=== PATIENT | female | born 1965 | race Caucasian/White ===

== ENCOUNTER 2017-11-20 07:25 | Observation (INO) | payer BC ==
[2017-11-20] MEDS ORDERED: RX INFO: IV CONTRAST WAS GIVEN 1 EACH MISC MISCELLANE PRN (07:50)
[2017-11-20] MEDS ORDERED: PANTOPRAZOLE 40 MG/10 ML VIAL IVP STA (07:50)
--- NOTE | 2017-11-20 07:53 | ED ---
General Adult HPI - General Chief complaint: Abdominal Pain Stated complaint: Abd Pain Time Seen by Provider: 11/20/17 07:43 Source: patient, RN notes reviewed Mode of arrival: ambulatory Limitations: no limitations - History of Present Illness Initial comments: Patient is a pleasant 52-year-old female presenting to the emergency Department with complaints of abdominal discomfort. Onset was around 8 PM last night. Patient has discomfort left lower abdomen. Patient has had several episodes of bloody bowel movements with only blood, no stool. Patient has been somewhat constipated the past couple of days prior to this. No diarrhea. Patient has mild nausea, no vomiting. Patient had chills and subjective fever last night. - Related Data Allergies Allergy/AdvReac Type Severity Reaction Status Date / Time No Known Allergies Allergy Verified 11/20/17 07:29 Review of Systems ROS Statement: Those systems with pertinent positive or pertinent negative responses have been documented in the HPI. ROS Other: All systems not noted in ROS Statement are negative. Constitutional: Reports: fever, chills Eyes: Denies: eye pain ENT: Denies: ear pain Respiratory: Denies: cough Cardiovascular: Denies: chest pain Gastrointestinal: Reports: abdominal pain, nausea. Denies: vomiting Genitourinary: Denies: dysuria Musculoskeletal: Denies: back pain Skin: Denies: rash Neurological: Denies: weakness 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 History of Any Multi-Drug Resistant Organisms: None Reported Past Surgical History: Hysterectomy, Orthopedic Surgery Past Psychological History: No Psychological Hx Reported Smoking Status: Never smoker Past Alcohol Use History: None Reported Past Drug Use History: None Reported General Exam Limitations: no limitations General appearance: alert, in no apparent distress Head exam: Present: atraumatic Eye exam: Present: normal appearance, PERRL ENT exam: Present: normal oropharynx Neck exam: Present: normal inspection Respiratory exam: Present: normal lung sounds bilaterally Cardiovascular Exam: Present: regular rate, normal rhythm Expanded Peripheral pulses: 2+: Posterior Tibialis (R), Posterior Tibialis (L) GI/Abdominal exam: Present: soft, tenderness (Mild to moderate tenderness left lower abdomen), normal bowel sounds. Absent: distended, guarding, rebound, rigid, pulsatile mass Extremities exam: Present: normal inspection. Absent: pedal edema, calf tenderness Back exam: Present: normal inspection. Absent: CVA tenderness (L) Neurological exam: Present: alert Psychiatric exam: Present: normal affect, normal mood Skin exam: Present: normal color Course Vital Signs 11/20/17 11/20/17 07:27 08:29 Temperature 100.2 F H Pulse Rate 86 73 Respiratory 20 18 Rate Blood Pressure 161/97 139/74 O2 Sat by Pulse 98 98 Oximetry Medical Decision Making - Medical Decision Making Patient reevaluated and updated. Dr. Herrera has been paged for admission for Dr. Hayden. Patient does not meet sepsis criteria. Patient will be covered with antibiotics secondary to elevated temperature and colitis on CT. - Lab Data Result diagrams: 11/20/17 07:40 11/20/17 07:40 Lab Results 11/20/17 11/20/17 11/20/17 Range/Units 07:40 07:40 07:40 WBC 10.5 (3.8-10.6) k/uL RBC 4.86 (3.80-5.40) m/uL Hgb 14.2 (11.4-16.0) gm/dL Hct 42.4 (34.0-46.0) % MCV 87.3 (80.0-100.0) fL MCH 29.3 (25.0-35.0) pg MCHC 33.6 (31.0-37.0) g/dL RDW 13.3 (11.5-15.5) % Plt Count 349 (150-450) k/uL Neutrophils % 62 % Lymphocytes % 30 % Monocytes % 5 % Eosinophils % 1 % Basophils % 0 % Neutrophils # 6.6 (1.3-7.7) k/uL Lymphocytes # 3.2 (1.0-4.8) k/uL Monocytes # 0.6 (0-1.0) k/uL Eosinophils # 0.1 (0-0.7) k/uL Basophils # 0.0 (0-0.2) k/uL PT (9.0-12.0) sec INR (<1.2) APTT (22.0-30.0) sec Sodium 145 (137-145) mmol/L Potassium 4.4 (3.5-5.1) mmol/L Chloride 106 (98-107) mmol/L Carbon Dioxide 24 (22-30) mmol/L Anion Gap 15 mmol/L BUN 20 H (7-17) mg/dL Creatinine 0.98 (0.52-1.04) mg/dL Est GFR (CKD-EPI)AfAm 78 (>60 ml/min/1.73 sqM) Est GFR (CKD-EPI)NonAf 67 (>60 ml/min/1.73 sqM) Glucose 102 H (74-99) mg/dL Plasma Lactic Acid Anibal 1.1 (0.7-2.0) mmol/L Calcium 9.6 (8.4-10.2) mg/dL Total Bilirubin 0.4 (0.2-1.3) mg/dL AST 30 (14-36) U/L ALT 73 H (9-52) U/L Alkaline Phosphatase 79 (38-126) U/L Total Protein 7.5 (6.3-8.2) g/dL Albumin 4.3 (3.5-5.0) g/dL Urine Color Urine Appearance (Clear) Urine pH (5.0-8.0) Ur Specific [place] (1.001-1.035) Urine Protein (Negative) Urine Glucose (UA) (Negative) Urine Ketones (Negative) Urine Blood (Negative) Urine Nitrite (Negative) Urine Bilirubin (Negative) Urine Urobilinogen (<2.0) mg/dL Ur Leukocyte Esterase (Negative) Urine RBC (0-5) /hpf Urine WBC (0-5) /hpf Ur Squamous Epith Cells (0-4) /hpf Urine Mucus (None) /hpf 11/20/17 11/20/17 Range/Units 07:40 07:59 WBC (3.8-10.6) k/uL RBC (3.80-5.40) m/uL Hgb (11.4-16.0) gm/dL Hct (34.0-46.0) % MCV (80.0-100.0) fL MCH (25.0-35.0) pg MCHC (31.0-37.0) g/dL RDW (11.5-15.5) % Plt Count (150-450) k/uL Neutrophils % % Lymphocytes % % Monocytes % % Eosinophils % % Basophils % % Neutrophils # (1.3-7.7) k/uL Lymphocytes # (1.0-4.8) k/uL Monocytes # (0-1.0) k/uL Eosinophils # (0-0.7) k/uL Basophils # (0-0.2) k/uL PT 9.7 (9.0-12.0) sec INR 1.0 (<1.2) APTT 21.5 L (22.0-30.0) sec Sodium (137-145) mmol/L Potassium (3.5-5.1) mmol/L Chloride (98-107) mmol/L Carbon Dioxide (22-30) mmol/L Anion Gap mmol/L BUN (7-17) mg/dL Creatinine (0.52-1.04) mg/dL Est GFR (CKD-EPI)AfAm (>60 ml/min/1.73 sqM) Est GFR (CKD-EPI)NonAf (>60 ml/min/1.73 sqM) Glucose (74-99) mg/dL Plasma Lactic Acid Anibal (0.7-2.0) mmol/L Calcium (8.4-10.2) mg/dL Total Bilirubin (0.2-1.3) mg/dL AST (14-36) U/L ALT (9-52) U/L Alkaline Phosphatase (38-126) U/L Total Protein (6.3-8.2) g/dL Albumin (3.5-5.0) g/dL Urine Color Yellow Urine Appearance Clear (Clear) Urine pH 5.5 (5.0-8.0) Ur Specific [place] 1.023 (1.001-1.035) Urine Protein Negative (Negative) Urine Glucose (UA) Negative (Negative) Urine Ketones Negative (Negative) Urine Blood Trace H (Negative) Urine Nitrite Negative (Negative) Urine Bilirubin Negative (Negative) Urine Urobilinogen <2.0 (<2.0) mg/dL Ur Leukocyte Esterase Negative (Negative) Urine RBC 1 (0-5) /hpf Urine WBC 2 (0-5) /hpf Ur Squamous Epith Cells 1 (0-4) /hpf Urine Mucus Occasional H (None) /hpf - Radiology Data Radiology results: report reviewed (Computed tomography scan of the abdomen and pelvis has findings consistent with colitis involving the descending and sigmoid colon.), image reviewed (Chest x-ray shows no acute process.) Disposition Clinical Impression: GI hemorrhage, Colitis Disposition: ADMITTED IP TO THIS [facility] Referrals: Jessy Hayden MD [Primary Care Provider] - 1-2 days Decision Time: 09:21
[2017-11-20] MEDS ORDERED: SODIUM CHLORIDE 0.9% 500 ML IV SCH (08:00)
[2017-11-20 08:06] LABS: Basophils % (A) 0 %; Eosinophils # (A) 0.1 k/uL (0-0.7); Eosinophils % (A) 1 %; HCT 42.4 % (34.0-46.0); HGB 14.2 gm/dL (11.4-16.0); Lymphocytes # (A) 3.2 k/uL (1.0-4.8); Lymphocytes % (A) 30 %; MCH 29.3 pg (25.0-35.0); MCHC 33.6 g/dL (31.0-37.0); MCV 87.3 fL (80.0-100.0); Mean Platelet Volume 7.9; Monocytes # (A) 0.6 k/uL (0-1.0); Monocytes % (A) 5 %; Neutrophils # (A) 6.6 k/uL (1.3-7.7); Neutrophils % (A) 62 %; Platelet Count 349 k/uL (150-450); RBC 4.86 m/uL (3.80-5.40); RDW 13.3 % (11.5-15.5); WBC 10.5 k/uL (3.8-10.6)
[2017-11-20 08:11] LABS: Appearance,Urine Clear (Clear); Bilirubin,Urine Negative (Negative); Blood,Urine Trace (Negative); Color,Urine Yellow; Glucose,Urine (UA) Negative (Negative); Ketones,Urine Negative (Negative); Leukocyte Esterase,Urine Negative (Negative); Mucus,Urine Occasional /hpf; Nitrite,Urine Negative (Negative); PH, Urine 5.5 (5.0-8.0); Protein,Urine Negative (Negative); RBC,Urine 1 /hpf (0-5); Specific Gravity,Urine 1.023 (1.001-1.035); Squamous Epithelial Cell,Urine 1 /hpf (0-4); Urobilinogen,Urine <2.0 mg/dL (<2.0); WBC,Urine 2 /hpf (0-5)
--- NOTE | 2017-11-20 08:15 | XR ---
EXAMINATION TYPE: XR chest 2V DATE OF EXAM: 11/20/2017 HISTORY: Fever. REFERENCE: NONE. FINDINGS: The lungs are clear. Pleural space are clear. The heart is not enlarged. IMPRESSION: NORMAL CHEST.
[2017-11-20 08:16] LABS: Prothrombin Time 9.7 sec (9.0-12.0)
[2017-11-20 08:17] LABS: Albumin 4.3 g/dL (3.5-5.0); Calcium 9.6 mg/dL (8.4-10.2); Potassium 4.4 mmol/L (3.5-5.1); Total Bilirubin 0.4 mg/dL (0.2-1.3); Total Protein 7.5 g/dL (6.3-8.2)
[2017-11-20 08:29] LABS: Partial Thromboplastin Time 21.5 sec (22.0-30.0)
[2017-11-20] MEDS ORDERED: MORPHINE SULFATE 4MG/4ML SYRG IVP STA (08:31)
[2017-11-20] MEDS ORDERED: ONDANSETRON 4 MG/2 ML VIAL IVP STA (08:31)
--- NOTE | 2017-11-20 08:40 | CT ---
EXAMINATION TYPE: CT abdomen pelvis w con DATE OF EXAM: 11/20/2017 REFERENCE: NONE HISTORY: Pain HISTORY: Abdominal pain with rectal bleeding REFERENCE: NONE CT DLP: 1280.5 mGy Automated exposure control for dose reduction was used. TECHNIQUE: Helical acquisition through the abdomen and pelvis was obtained following the oral ingesti on of without Oral Contrast and following intravenous administration of 100 ml mL of Isovue 300. The data was reformatted in axial, coronal and sagittal projections. FINDINGS: Visualized portions of the lungs are clear. There is no pleural or pericardial fluid. The heart is not enlarged. Within the abdomen, the liver, spleen and gallbladder appear normal. Both adrenal glands appear normal. Both kidneys demonstrate function and appear morphologically normal. The pancreas is unremarkable. There is no significant retroperitoneal, iliac or inguinal adenopathy. Uterus and ovaries are not visualized. There is diffuse thickening of the sigmoid colon as well as the descending colon. The remainder of th e colon is unremarkable. The appendix is not visualized with certainty. Small bowel loops are normal in caliber. There is no evidence of free air and no significant free fluid. There is mild facet arthropathy in the lower lumbar spine. IMPRESSION: FINDINGS CONSISTENT WITH COLITIS INVOLVING THE DESCENDING COLON AND SIGMOID COLONS. PLEASE CORRELATE CLINICALLY.
[2017-11-20] MEDS ORDERED: NALOXONE 0.4 MG/ML 1 ML VIAL IV PRN (09:21)
[2017-11-20] MEDS ORDERED: AMPICILLIN-SULBACTAM 3 GM in SODIUM CHLORIDE 0.9% 100 ML IVPB STA (09:21)
[2017-11-20] MEDS ORDERED: MORPHINE SULFATE 4MG/4ML SYRG IV PRN (09:21)
[2017-11-20] MEDS ORDERED: ONDANSETRON 4 MG/2 ML VIAL IVP PRN (09:21)
[2017-11-20] MEDS ORDERED: ACETAMINOPHEN TAB 325 MG TAB PO STA (09:52)
[2017-11-20 09:57] VITALS: RESP 16
[2017-11-20 11:05] VITALS: BMI 32.5
[2017-11-20] MEDS: SODIUM CHLORIDE 0.9% 1,000 ML IV SCH ×2 (11:45→15:53)
--- NOTE | 2017-11-20 11:45 | P.HPIM ---
History of Present Illness 52-year-old female presenting to the emergency Department with complaints of abdominal discomfort about sounds as 10 pain in the left lower quadrant nonradiating Onset was around 8 PM last night. Patient has discomfort left lower abdomen. Patient has had several episodes of bloody bowel movements with only blood, no stool. Patient has been somewhat constipated the past couple of days prior to this. No diarrhea. Patient has mild nausea, no vomiting. Patient had chills and subjective fever last night. Patient is found to have diverticulitis. Patient was started on Unasyn. Gastroenterology was consulted because of the GI bleed. Review of Systems REVIEW OF SYSTEMS: CONSTITUTIONAL: No fever, no malaise, no fatigue. HEENT: No recent visual problems or hearing problems. Denied any sore throat. CARDIOVASCULAR: No chest pain, orthopnea, PND, no palpitations, no syncope. PULMONARY: No shortness of breath, no cough, no hemoptysis. GASTROINTESTINAL: As mentioned in HPI NEUROLOGICAL: No headaches, no weakness, no numbness. HEMATOLOGICAL: Denies any bleeding or petechiae. GENITOURINARY: Denies any burning micturition, frequency, or urgency. MUSCULOSKELETAL/RHEUMATOLOGICAL: Denies any joint pain, swelling, or any muscle pain. ENDOCRINE: Denies any polyuria or polydipsia. The rest of the 14-point review of systems is negative. 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 History of Any Multi-Drug Resistant Organisms: None Reported Past Surgical History: Hysterectomy, Orthopedic Surgery Smoking Status: Never smoker - Past Family History Sister(s) Additional Family Medical History / Comment(s): diverticulitis Medications and Allergies Home Medications Medication Instructions Recorded Confirmed Type Atenolol 25 mg PO QAM 11/20/17 11/20/17 History Loratadine [Claritin] 10 mg PO DAILY 11/20/17 11/20/17 History Allergies Allergy/AdvReac Type Severity Reaction Status Date / Time No Known Allergies Allergy Verified 11/20/17 11:24 Physical Exam Vitals: Vital Signs Temp Pulse Pulse Resp BP BP Pulse Ox 11/20/17 10:56 98.2 F 59 L 16 128/81 97 11/20/17 09:55 98 F 68 16 135/76 99 11/20/17 08:29 73 18 139/74 98 11/20/17 07:27 100.2 F H 86 20 161/97 98 Intake and Output 11/19/17 11/20/17 11/20/17 22:59 06:59 14:59 Other: Weight 109 kg PHYSICAL EXAMINATION: GENERAL: The patient is alert and oriented x3, not in any acute distress. Well developed, well nourished. HEENT: Pupils are round and equally reacting to light. EOMI. No scleral icterus. No conjunctival pallor. Normocephalic, atraumatic. No pharyngeal erythema. No thyromegaly. CARDIOVASCULAR: S1 and S2 present. No murmurs, rubs, or gallops. PULMONARY: Chest is clear to auscultation, no wheezing or crackles. ABDOMEN: Soft, minimal tenderness in the left lower quadrant, nondistended, normoactive bowel sounds. No palpable organomegaly. MUSCULOSKELETAL: No joint swelling or deformity. EXTREMITIES: No cyanosis, clubbing, or pedal edema. NEUROLOGICAL: Gross neurological examination did not reveal any focal deficits. SKIN: No rashes. Results CBC & Chem 7: 11/20/17 07:40 11/20/17 07:40 Labs: Abnormal Lab Results - Last 24 Hours (Table) 11/20/17 11/20/17 11/20/17 Range/Units 07:40 07:40 07:59 APTT 21.5 L (22.0-30.0) sec BUN 20 H (7-17) mg/dL Glucose 102 H (74-99) mg/dL ALT 73 H (9-52) U/L Urine Blood Trace H (Negative) Urine Mucus Occasional H (None) /hpf Thrombosis Risk Factor Assmnt - Choose All That Apply Each Factor Represents 1 point: Medical pt on bed rest Other Risk Factors: No Thrombosis Risk Factor Assessment Total Risk Factor Score: 1 Thrombosis Risk Factor Assessment Level: Low Risk Assessment and Plan Plan: -Abdominal pain: Secondary to diabetic lightest patient is on Unasyn which will be continued. -Acute GI bleeding and acute blood loss anemia from GI bleed lower GI bleed secondary to diverticulitis will monitor. Repeat CBC tomorrow morning unless he bleeds again today. -History of PVCs in the past no further intervention at this point of time
[2017-11-20] MEDS ORDERED: MORPHINE ORAL SOLN 10 MG/5 ML CUP PO PRN (14:48)
--- NOTE | 2017-11-20 15:10 | CONS ---
CONSULTATION DATE OF CONSULTATION: November 20, 2017. REQUESTING PHYSICIAN: Dr. Hayden. REASON FOR CONSULTATION: Abdominal pain and bloody diarrhea. HISTORY OF PRESENT ILLNESS: The patient is a 52-year-old pleasant white female admitted to the hospital on this morning when she presents to the emergency room with severe acute onset of severe left lower quadrant abdominal pain followed by bright red blood per rectum. The pain started at 8:00 pm last night and subsequently had about at least 7 episodes of bright red blood with clots. She had low-grade fever at home and when she came to the emergency room, it was 100.4. She never had these symptoms in the past. No one in the family has similar symptoms. Her last bloody bowel movement was 3 hours ago. Her abdominal pain is somewhat better this morning. She has some nausea but no emesis. No prior history of colonoscopy. No recent travel history. No recent antibiotic use. PAST MEDICAL HISTORY: Significant for cardiac arrhythmia. Past surgical history none. MEDICATIONS: At home, atenolol and Claritin. ALLERGIES: No known drug allergies. SOCIAL HISTORY: No smoking. No alcohol use. PAST SURGICAL HISTORY: Hysterectomy. REVIEW OF SYSTEMS: Cardiopulmonary: No chest pain, shortness of breath. Genitourinary: No dysuria or hematuria. Musculoskeletal: Unremarkable. Skin unremarkable. Endocrine unremarkable. Psychiatric unremarkable. Neurology unremarkable. ENT vision unremarkable. Constitutional: No recent weight loss. No fever, chills, night sweats. PHYSICAL EXAMINATION: Blood pressure is 161/97, pulse 86, temperature 100.2, HEENT examination unremarkable. Conjunctivae pink. Sclerae anicteric. Oral cavity no lesions. Neck: No jugular venous distention or lymph node enlargement. Chest was clear to auscultation. HEART: Regular rate and rhythm. ABDOMEN: Soft. Bowel sounds are positive. No organomegaly. There is mild tenderness in the left lower quadrant area. Extremities no pedal edema. Skin no rashes. NEUROLOGIC: Alert and oriented x3. No focal deficits. LAB: Done at the time of admission to the hospital, WBC 10.5, hemoglobin 14.2, platelets normal PT/INR is within normal limits. Basic metabolic panel is within normal limits. IMPRESSION: This is a lady who presents with acute onset of left lower quadrant abdominal pain followed by rectal bleeding that started at 8:00 pm last night. She had at least 7 episodes so far. She did have a CT of the abdomen and pelvis done in the emergency room that showed thickening of the descending colon as well as sigmoid colon consistent with acute colitis. The patient did have a low-grade fever but no . Symptoms are suggestive of either an acute infectious colitis versus ischemic colitis. RECOMMENDATION: 1. Start on a clear liquid diet. 2. Empiric antibiotics. 3. Stool cultures as well as C diff toxin. 4. If symptoms improve, she can be discharged home in 24-48 hours with an outpatient follow up in 1 week at which time, we will proceed with colonoscopy. The plan was discussed with the patient and she is agreeable to it. Thank you for this consultation. MMLALITL / PRESTONN: [id number] /
[2017-11-20] MEDS: AMPICILLIN-SULBACTAM 1.5 GM in SODIUM CHLORIDE 0.9% 50 ML IVPB SCH ×2 (15:53→23:20)
[2017-11-20 16:39] LABS: Basophils # (A) 0.1 k/uL (0-0.2); Basophils % (A) 1 %; Eosinophils # (A) 0.1 k/uL (0-0.7); Eosinophils % (A) 1 %; HCT 42.3 % (34.0-46.0); HGB 13.7 gm/dL (11.4-16.0); Lymphocytes # (A) 4.3 k/uL (1.0-4.8); Lymphocytes % (A) 40 %; MCH 28.9 pg (25.0-35.0); MCHC 32.5 g/dL (31.0-37.0); MCV 89.2 fL (80.0-100.0); Mean Platelet Volume 7.8; Monocytes # (A) 0.7 k/uL (0-1.0); Monocytes % (A) 6 %; Neutrophils # (A) 5.4 k/uL (1.3-7.7); Neutrophils % (A) 50 %; Platelet Count 313 k/uL (150-450); RBC 4.75 m/uL (3.80-5.40); RDW 13.4 % (11.5-15.5); WBC 10.8 k/uL (3.8-10.6)
[2017-11-20] MEDS: ACETAMINOPHEN TAB 325 MG TAB PO PRN (17:53)
[2017-11-21 07:17] LABS: Basophils % (A) 0 %; Eosinophils # (A) 0.1 k/uL (0-0.7); Eosinophils % (A) 2 %; HCT 39.3 % (34.0-46.0); Lymphocytes # (A) 2.8 k/uL (1.0-4.8); Lymphocytes % (A) 38 %; MCH 29.6 pg (25.0-35.0); MCV 89.7 fL (80.0-100.0); Mean Platelet Volume 7.9; Monocytes # (A) 0.4 k/uL (0-1.0); Monocytes % (A) 6 %; Neutrophils # (A) 3.9 k/uL (1.3-7.7); Neutrophils % (A) 53 %; Platelet Count 275 k/uL (150-450); RBC 4.38 m/uL (3.80-5.40); RDW 13.3 % (11.5-15.5); WBC 7.4 k/uL (3.8-10.6)
[2017-11-21 07:35] LABS: Anion Gap 8 mmol/L; Blood Urea Nitrogen 12 mg/dL (7-17); Calcium 9.1 mg/dL (8.4-10.2); Carbon Dioxide 27 mmol/L (22-30); Chloride 107 mmol/L (98-107); Glucose 90 mg/dL (74-99); Potassium 4.5 mmol/L (3.5-5.1); Sodium 142 mmol/L (137-145)
[2017-11-21 08:04] VITALS: BP 126/82; PULSE 58; TEMP 98
[2017-11-21] MEDS: ACETAMINOPHEN TAB 325 MG TAB PO PRN (08:21)
[2017-11-21] MEDS: AMPICILLIN-SULBACTAM 1.5 GM in SODIUM CHLORIDE 0.9% 50 ML IVPB SCH ×2 (08:58→16:00)
[2017-11-21] MEDS ORDERED: ATENOLOL 25 MG TAB PO SCH (09:00)
[2017-11-21] MEDS ORDERED: PANTOPRAZOLE 40 MG/10 ML VIAL IV SCH (09:00)
--- NOTE | 2017-11-21 11:39 | P.DS ---
Providers Date of admission: 11/20/17 09:21 Attending physician: Mylene Herrera Consults: 11/20/17 09:22 Consult Physician Urgent Consulting Provider: Alcira Herrera Consult Reason/Comments: gi hemorrhage, colitis Do you want consulting provider notified?: Yes Primary care physician: Jessy Hayden Hospital Course: Patient is a pleasant 52-year-old female admitted for a mostly diverticulitis and there is a possibility of ischemic colitis patient last blood in the stool was yesterday we will monitor her mental later in the day if she doesn't have any more bloody stools patient will be discharged on Augmentin patient is on Unasyn here will give her 10 day of's of antibiotic. PHYSICAL EXAMINATION: GENERAL: The patient is alert and oriented x3, not in any acute distress. Well developed, well nourished. HEENT: Pupils are round and equally reacting to light. EOMI. No scleral icterus. No conjunctival pallor. Normocephalic, atraumatic. No pharyngeal erythema. No thyromegaly. CARDIOVASCULAR: S1 and S2 present. No murmurs, rubs, or gallops. PULMONARY: Chest is clear to auscultation, no wheezing or crackles. ABDOMEN: Soft, nontender, nondistended, normoactive bowel sounds. No palpable organomegaly. MUSCULOSKELETAL: No joint swelling or deformity. EXTREMITIES: No cyanosis, clubbing, or pedal edema. NEUROLOGICAL: Gross neurological examination did not reveal any focal deficits. SKIN: No rashes. The rest of the other chronic medical problems and hospital physician course please refer to my HPI Plan - Discharge Summary Discharge Rx Participant: Yes New Discharge Prescriptions: New Amoxic-Pot Clav 875-125Mg [Augmentin 875-125] 1 tab PO Q12HR #20 tablet No Action Atenolol 25 mg PO QAM Loratadine [Claritin] 10 mg PO DAILY Discharge Medication List Atenolol 25 mg PO QAM 11/20/17 [History] Loratadine [Claritin] 10 mg PO DAILY 11/20/17 [History] Amoxic-Pot Clav 875-125Mg [Augmentin 875-125] 1 tab PO Q12HR #20 tablet [Rx] Follow up Appointment(s)/Referral(s): Jessy Hayden MD [Primary Care Provider] - 3 Days Discharge Disposition: HOME SELF-CARE
--- NOTE | 2017-11-21 14:30 | PN ---
PROGRESS NOTE DATE OF SERVICE: November 21, 2017. REQUESTING PHYSICIAN: Dr. Hayden The patient is a 52-year-old pleasant white female admitted to the hospital with acute onset of severe lower abdominal pain followed by bloody diarrhea of 24 hours duration. She was admitted to hospital yesterday. This morning she is feeling much better. She has vague abdominal discomfort in the left lower quadrant area. No further bleeding. In fact, the last bowel movement was 24 hours ago. No fever, chills, night sweats. No nausea, vomiting. On a clear liquid diet, tolerating well. PHYSICAL EXAMINATION: She appears comfortable, in no apparent distress. Vital signs stable. Blood pressure is 132/86, pulse rate is 62 per minute and temperature 98. HEENT examination unremarkable. Conjunctivae pink. Sclerae anicteric. Oral cavity no lesions. Neck: No jugular venous distention or lymph node enlargement. Chest was clear to auscultation. HEART: Regular rate and rhythm. ABDOMEN: Soft. Bowel sounds are positive. No organomegaly. Extremities: No pedal edema. Skin no rashes. NEUROLOGIC: Alert and oriented x3. No focal deficits. LABORATORY DATA: WBC 7.4, hemoglobin 13, and platelets are normal. Basic metabolic panel is within normal limits. IMPRESSION: This is a lady who presents with acute onset of lower abdominal pain followed by bloody diarrhea of [address] scan showed thickening of the left colon consistent with acute colitis. Most likely we are dealing with infectious colitis with possibility of ischemic colitis also needs to be considered. The patient on empiric antibiotics, doing well. C diff toxin was negative. Stool studies were not done as the patient did not have any bowel movement since yesterday. RECOMMENDATIONS: 1. Advance diet as tolerated. 2. Continue antibiotics. 3. Discharge home today. 4. Outpatient follow up in office in 2-3 weeks at which time, we will consider doing a colonoscopy. Thank you for this consultation. MMODL / IJN: [id number] /
== END 2017-11-21 17:20 | disposition home or self-care (01) ==
LOC: EC 07:25 → INTOOBSV 09:21 → 5MS5E 09:21
PROVIDERS: ADMIT Hospitalist; ATTEND Hospitalist
DX: K57.33 Diverticulitis of large intestine without perforation or abscess with bleeding (principal); D62 Acute posthemorrhagic anemia; I49.3 Ventricular premature depolarization; A41.9 Sepsis, unspecified organism; Z79.899 Other long term (current) drug therapy
CPT/HCPCS: 36415; 71046; 74177; 80048; 80053; 81001; 83605; 85025; 85610; 85730; 87040; 87086; 96365; 96366; 96375; 96376; 99285

== ENCOUNTER 2018-01-04 08:57 | Day surgery (SDC) | payer BC ==
[~2018-01-04 08:57] MED LIST: LACTATED RINGERS 1,000 ML IV SCH; LIDOCAINE 1% 20 ML VIAL (10MG/ML) FOR IV START INTRADERMA PRN
[2018-01-04 09:55] VITALS: TEMP 97.8
[2018-01-04] MEDS ORDERED: PROPOFOL 10 MG/ML 20 ML VIAL IV ONE (10:02)
[2018-01-04 10:32] VITALS: RESP 18
--- NOTE | 2018-01-04 10:32 | P.PCN ---
Date of Procedure: 01/04/18 Procedure(s) Performed: BRIEF HISTORY: Patient is a 52-year-old pleasant female, scheduled for an elective colonoscopy as a part of evaluation of recent episode of acute colitis and bloody diarrhea of 2 days' duration. She was hospitalized a month ago. She is doing well now. PROCEDURE PERFORMED: Colonoscopy. PREOPERATIVE DIAGNOSIS: Recent Episode of acute colitis. IV sedation per Anesthesia. PROCEDURE: After informed consent was obtained, the patient, was brought into the endoscopy unit. IV sedation was administered by Anesthesia under continuous monitoring. Digital rectal examination was normal. Initially the Olympus CF- 160 flexible video colonoscope was then inserted in the rectum, gradually advanced into the cecum without any difficulty. Careful examination was performed as the scope was gradually being withdrawn. Ileocecal valve and the appendiceal orifice were visualized and appeared normal. Prep was excellent. Mucosa of the cecum, ascending colon, transverse colon, descending colon, sigmoid colon, and rectum appeared normal. Retroflexion was performed in the rectum and no lesions were seen. The patient tolerated the procedure well. IMPRESSION: Normal-appearing colon from rectum to cecum with no evidence of colorectal neoplasia. RECOMMENDATIONS: Findings of this examination were discussed with the patient as was her family. She was advised to have a repeat screening colonoscopy in 10 years.
[2018-01-04 10:42] VITALS: BP 125/78; PULSE 72
== END 2018-01-04 11:00 | disposition home or self-care (01) ==
LOC: ORWHC2ENDO 08:57
PROVIDERS: ATTEND Internal Medicine Gastroenterology
DX: K52.89 Other specified noninfective gastroenteritis and colitis (principal); Z79.899 Other long term (current) drug therapy
CPT/HCPCS: 45378; J2704

== ENCOUNTER → 2020-04-22 | Outpatient (CLI) | payer BC ==
--- NOTE | 2020-04-24 08:40 | MM ---
Reason for exam: screening (asymptomatic). Physical Findings: A clinical breast exam by your physician is recommended on an annual basis and results should be correlated with mammographic findings. MG Screening Mammo w CAD Bilateral CC and MLO view(s) were taken. No prior studies available for comparison. The breast tissue is heterogeneously dense. This may lower the sensitivity of mammography. Global asymmetry on the right breast. Additional views recommended to ensure that there is no persisting underlying abnormality. ASSESSMENT: Incomplete: need additional imaging evaluation, BI-RAD 0 RECOMMENDATION: Special view mammogram of the right breast. (3D) If lesion persists on supplemental views, image directed ultrasound is recommended. [facility] will attempt to contact patient to return for supplemental views and ultrasound if indicated.
== END | disposition home or self-care (01) ==
LOC: RADMAMWWP 12:23
PROVIDERS: ATTEND Family Medicine
DX: Z12.31 Encounter for screening mammogram for malignant neoplasm of breast (principal)
CPT/HCPCS: 77067

== ENCOUNTER → 2020-04-30 | Outpatient (CLI) | payer BC ==
--- NOTE | 2020-04-30 10:49 | MM ---
Reason for exam: additional evaluation requested from abnormal screening. Last mammogram was performed less than 1 month ago. Physical Findings: Nurse did not find any significant physical abnormalities on exam. MG Work Up Mamm w CAD RT Spot compression CC, spot compression MLO, and ML view(s) were taken of the right breast. Prior study comparison: April 22, 2020, bilateral MG screening mammo w CAD. The breast tissue is heterogeneously dense. This may lower the sensitivity of mammography. Finding: There is a 5 mm circumscribed oval mass located 7 cm from the nipple in the posterior position of the right breast on CC view. There is no discrete abnormality including area of concern x 2 right breast. Asymmetries disperse on compression. New finding since April 22, 2020. These results were verbally communicated with the patient and result sheet given to the patient on 04/30/20. ASSESSMENT: Incomplete: need additional imaging evaluation, BI-RAD 0 RECOMMENDATION: Ultrasound of the right breast.
--- NOTE | 2020-04-30 10:50 | USB ---
Reason for exam: additional evaluation requested from abnormal screening. US Breast Workup RT Right complete breast ultrasound includes all four quadrants, the retroareolar region and axilla. Finding demonstrates a 8 x 4 x 10mm cystic lesion at 9 o'clock and a 7 x 4 x 4mm cystic lesion at 9 o'clock. These results were verbally communicated with the patient and result sheet given to the patient on 04/30/20. ASSESSMENT: Probably benign, BI-RAD 3 RECOMMENDATION: Follow-up diagnostic mammogram and ultrasound of the right breast in 6 months.
== END | disposition home or self-care (01) ==
LOC: RADMAMWWP 07:01
PROVIDERS: ATTEND Family Medicine
DX: R92.8 Other abnormal and inconclusive findings on diagnostic imaging of breast (principal)
CPT/HCPCS: 77065

== ENCOUNTER → 2020-12-05 | Outpatient (CLI) | payer BC ==
--- NOTE | 2020-12-05 09:15 | MM ---
Reason for exam: follow-up at short interval from prior study. Last mammogram was performed 7 months ago. Physical Findings: Nurse did not find any significant physical abnormalities on exam. MG 3D Diag Mammo W/Cad RT CC and MLO view(s) were taken of the right breast. Prior study comparison: April 30, 2020, right breast MG work up mamm w CAD RT. April 22, 2020, bilateral MG screening mammo w CAD. The breast tissue is heterogeneously dense. This may lower the sensitivity of mammography. Anterior and posterior asymmetric densities on the CC view area unchanged for 6 months. ASSESSMENT: Incomplete: need additional imaging evaluation, BI-RAD 0 RECOMMENDATION: Ultrasound of the right breast.
--- NOTE | 2020-12-05 09:49 | USB ---
Reason for exam: additional evaluation requested from abnormal screening. US Breast Limited RT Right limited breast ultrasound including focal area of concern, retroareolar and axilla demonstrates a 0.9 x 0.5 x 1.1cm cystic cluster at 9 o'clock versus 10 x 8 x 4mm previously, not significantly changed, a 0.7 x 0.5 x 0.6cm benign, cystic cluster at 9 o'clock and a 0.9 x 0.5 x 1.1cm cystic cluster at 9 o'clock, not seen previously, 6 month follow up recommended. These results were verbally communicated with the patient and result sheet given to the patient on 12/05/20. ASSESSMENT: Probably benign, BI-RAD 3 RECOMMENDATION: Follow-up diagnostic mammogram of both breasts in 6 months. Ultrasound of the right breast in 6 months.
== END | disposition home or self-care (01) ==
LOC: RADMAMWWP 06:58
PROVIDERS: ATTEND Family Medicine
DX: N60.11 Diffuse cystic mastopathy of right breast (principal); N64.89 Other specified disorders of breast
CPT/HCPCS: 77061; 77065

== ENCOUNTER → 2023-02-01 | Outpatient (CLI) | payer BC ==
--- NOTE | 2023-02-01 08:41 | MM ---
Reason for Exam: Additional evaluation requested from prior study. Last mammogram was performed 2 year(s) and 9 month(s) ago. Patient History: Menarche at age 16. First Full-Term at age 29. Hysterectomy at age 47. Postmenopausal. Patient has history of breast feeding. Risk Values: [place]ree 5 year model risk: 1.2%. NCI Lifetime model risk: 8.3%. Prior Study Comparison: 04/22/2020 Bilateral Screening Mammogram, [facility]. 04/30/2020 Right Diagnostic Mammogram, [facility]. 12/05/2020 Right Diagnostic Mammogram, [facility]. 12/05/2020 Right Diagnostic Ultrasound, [facility]. Tissue Density: The breast tissue is heterogeneously dense. This may lower the sensitivity of mammography. Findings: Analyzed By CAD. Areas of asymmetric density within the right breast remain unchanged. No significant change from prior exams. Overall Assessment: Incomplete: need additional imaging evaluation, BI-RAD 0 Management: Diagnostic Breast Ultrasound of the right breast. Lateral half, 6-12 o'clock. Electronically signed and approved by: Valentino Parr M.D. Radiologist
--- NOTE | 2023-02-01 09:04 | USB ---
Reason for Exam: Follow-up at short interval from prior study. Patient History: Menarche at age 16. First Full-Term at age 29. Hysterectomy at age 47. Postmenopausal. Patient has history of breast feeding. Risk Values: Bree 5 year model risk: 1.2%. NCI Lifetime model risk: 8.3%. Technique: Method: Targeted. Prior Study Comparison: 04/22/2020 Bilateral Screening Mammogram, [facility]. 04/30/2020 Right Diagnostic Mammogram, [facility]. 12/05/2020 Right Diagnostic Mammogram, [facility]. Findings: The upper outer quadrant of the right breast, the axilla of the right breast and the retroareolar of the right breast were scanned. Targeted ultrasound right breast upper outer quadrant, 12:00 subareolar region and axilla. The two 9:00 cyst clusters located 4 cm from the nipple measuring up to 9 mm and located 2 cm from the nipple measuring 1.3 cm are redemonstrated without significant change. No other solid or cystic lesion or axillary lymphadenopathy. Overall Assessment: Benign, BI-RAD 2 Management: Screening Mammogram of both breasts in 1 year. A clinical breast exam by your physician is recommended on an annual basis and results should be correlated with mammographic findings. This exam should not preclude additional follow-up of suspicious palpable abnormalities. Results were given to the patient verbally at the time of exam. Electronically signed and approved by: Valentino Parr M.D. Radiologist
== END | disposition home or self-care (01) ==
LOC: RADMAMWWP 08:01
PROVIDERS: ATTEND Family Medicine
DX: N60.19 Diffuse cystic mastopathy of unspecified breast (principal); Z78.0 Asymptomatic menopausal state
CPT/HCPCS: 77062; 77066

== ENCOUNTER → 2023-03-09 | Outpatient (CLI) | payer BC ==
--- NOTE | 2023-03-09 17:49 | P.SLEEP ---
History of Present Illness DATE: 03/09/2023 CONSULTATION/NEW PATIENT EVALUATION HISTORY OF PRESENT ILLNESS/SLEEP-WAKE EVALUATION: 57-year-old lady had been evaluated in the sleep center for possible obstructive sleep apnea hypopnea syndrome. SLEEP SCHEDULE: Usually sleep schedule from 8 PM to 4 AM on weekdays and from 8 PM to 6 AM on weekend. FALLING ASLEEP: No problems with falling asleep. DURING SLEEP: Patient has loud snoring, awakenings from sleep with episodes of heartburn, grinding teeth, nocturia. No history of hypnogogical hallucinations, sleep paralysis, or cataplexy. DURING THE DAY/WAKE STATE: Patient wakes up tired, falling asleep during the day, has episodes of headaches after awakenings from sleep. [place] sleepiness scale is 12, which indicates sleepiness. Patient may take naps on days off. . PAST MEDICAL HISTORY: Hypertension, headaches, acid reflux, PVCs. PAST SURGICAL HISTORY: Partial hysterectomy, shoulder surgery. MEDICATIONS: Metoprolol 50 mg once a day. SOCIAL HISTORY: Negative for smoking, alcohol consumption occasional. FAMILY HISTORY: Hypertension, coronary artery disease, pancreatic cancer by her mother. REVIEW OF SYSTEMS: Snoring, awakenings from sleep, sleepiness during the day. No fevers. No double vision. No recent chest pain. No shortness of breath. No abdominal pain. No bleeding episodes. No blood in urine. No seizure episodes. PHYSICAL EXAMINATION: GENERAL: A pleasant patient without any distress. VITAL SIGNS: BP 141/92 , HR 77 , RR 16 , weight 276.8 pounds, height 5 foot 11 inches, body mass index 38.4 . HEENT: PERRLA, EOMI. Evaluation of oropharynx showed tongue protrudes midline, low position of soft palate Mallampati 4. NECK: Supple. No JVD. Thyroid is not palpable. 16-3/4 inches in circumference. LUNGS: Clear to percussion and to auscultation. Good air exchange. No wheezing or rhonchi. HEART: S1, S2 regular. No murmurs, gallops or rubs. ABDOMEN: Soft and nontender. Bowel sounds are present. No organomegaly appreciated. EXTREMITIES: No clubbing or cyanosis. MIDDLE SCHOOL TUTOR: Awake, alert, and oriented x3. Cranial nerves 2 to 7 intact. There is no fasciculation or atrophy noted. No focal deficits observed. ASSESSMENT: 1. Loud snoring, extremely low position of soft palate Mallampati 4, wide neck 16-3/4 inches in circumference, sleepiness Mather Sleepiness Scale increased to 12, obstructive sleep apnea hypopnea syndrome. 2. Obesity BMI 38.4. 3. Hypertension. 4. History of headaches after awakenings from sleep. 5 acid reflux. 6 . History of PVCs. 7. Status post partial hysterectomy. 8. Status post elbow surgery 2. PLAN: 1. Polysomnography for evaluation of patient's breathing during sleep. 2. CPAP/BiPAP titration if sleep study confirms obstructive sleep apnea- hypopnea syndrome. 3. Preferable position during sleep on the side. 4. No driving if patient feels any sleepiness. Patient is aware of civil and criminal liability for unsafe driving. 5. Sleep hygiene with regular sleep time for at least 7.5-8 hours. 6. Watching and losing weight. Thank you very much for referring this patient for consultation. Sincerely, Carlos Arellano MD, PhD, FAASM. Diplomat of [place] [employer], Sleep Medicine Board by [place] [employer] [place] [employer] Robotics Specialist of [facility] [place] 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 History of Any Multi-Drug Resistant Organisms: None Reported Past Surgical History: Hysterectomy, Orthopedic Surgery Additional Past Surgical History / Comment(s): RIGHT SHOULDER. BILATERAL BUNIONS (FEET) Past Anesthesia/Blood Transfusion Reactions: No Reported Reaction Past Psychological History: No Psychological Hx Reported Past Alcohol Use History: None Reported Past Drug Use History: None Reported - Past Family History Sister(s) Additional Family Medical History / Comment(s): diverticulitis Medications and Allergies Home Medications Medication Instructions Recorded Confirmed Type Loratadine [Claritin] 10 mg PO QAM 11/20/17 01/04/18 History atenoloL 25 mg PO QAM 11/20/17 01/04/18 History L.acidoph,Paracasei, B.lactis 1 cap PO DAILY 12/30/17 01/04/18 History [Probiotic] Allergies Allergy/AdvReac Type Severity Reaction Status Date / Time No Known Allergies Allergy Verified 04/30/20 08:09 Sleep Note - Sleep Note Sleep Note: Temperature: Pulse Rate: Respiratory Rate: Blood Pressure: SpO2: Height: Weight: BMI: Neck Circumference:
== END ==
LOC: 3 N SLEEP 15:52
PROVIDERS: ATTEND Internal Medicine
DX: G47.33 Obstructive sleep apnea (adult) (pediatric) (principal); E66.9 Obesity, unspecified; Z68.38 Body mass index [BMI] 38.0-38.9, adult; I10 Essential (primary) hypertension; R51.9 Headache, unspecified; K21.9 Gastro-esophageal reflux disease without esophagitis; I49.3 Ventricular premature depolarization; Z98.890 Other specified postprocedural states; Z79.899 Other long term (current) drug therapy
CPT/HCPCS: 99211

== ENCOUNTER → 2023-08-24 | Outpatient (CLI) | payer BC ==
--- NOTE | 2023-08-24 16:55 | P.PN ---
Subjective DATE: 08/24/2023 FOLLOW UP VISIT. Patient with obstructive sleep apnea hypopnea syndrome return to sleep center for follow-up visit. Recently patient had sleep study which documented obstructive sleep apnea hypopnea syndrome. Patient was initiated on PAP therapy and today is first visit after treatment was started. Patient was able to use PAP equipment every night for the whole night. The patient does not have significant problems with the mask, PAP pressure and humidification. [place] sleepiness scale is 9. I checked information from PAP unit. PAP unit pressure 5-15, average 13.7 cm H2O. Usage is 90 % for more then 4 hours, average 8 hours per night. Leak is 4l/m, which is in acceptable range. Apnea Hypopnea Index is 3.4, which is normal. MEDICATIONS:1. Metoprolol 50 mg once a day During physical exam: GENERAL: A pleasant patient without any distress. VITAL SIGNS: BP 123/85, HR 72, RR 12 , weight 280.0, temperature 98.6, oxygen saturation at room air 97% . HEENT: PERRLA, EOMI.low position of soft palate, Mallapati 4 . NECK: Supple. No JVD. LUNGS: Clear to percussion and to auscultation. Good air exchange. No wheezing or rhonchi. HEART: S1, S2 regular. ABDOMEN: Soft and nontender.[] EXTREMITIES: No clubbing or cyanosis. WARD NURSE: Awake, alert, and oriented x3. No focal deficit. Impressions: 1. Obstructive sleep apnea-hypopnea syndrome. Patient demonstrated great compliance with treatment, benefiting from treatment. 2. History of headaches, no headaches after started to use CPAP equipment. 3. Hypertension. 4. Obesity. 5. Acid reflux. 6. History of PVCs. 7. Status post partial hysterectomy. 8. Status post elbow surgery 2. Plan: 1. Continue using PAP equipment every night for the whole night. 2. To change air filter at least 1-2 times per month. 3. PAP unit should stay lower then position of the head. 4. Advised patient to remove all remaining water from humidifier canister daily and make it dry after each usage. Refill canister with fresh distilled water before each usage. 5. Sleep hygiene with regular time in bed for at least 8 hours. 6. Precautions related to driving. No driving if feel any sleepiness. 7. I will maintain prescription for PAP supplies including mask, tube, filters. 8. Follow up visit in 6 months or earlier if patient has any problems. 9. Watching and losing weight. Thank you very much for allowing me to participate in the management of your patient. Carlos Arellano MD, PhD, FAASM. Diplomat of [place] [employer], Sleep Medicine Board by [place] [employer] Tax Agent of [facility] [place]
== END ==
LOC: 3 N SLEEP 16:09
PROVIDERS: ATTEND Internal Medicine
DX: G47.33 Obstructive sleep apnea (adult) (pediatric) (principal); I10 Essential (primary) hypertension; E66.9 Obesity, unspecified; K21.9 Gastro-esophageal reflux disease without esophagitis; Z86.79 Personal history of other diseases of the circulatory system; Z90.711 Acquired absence of uterus with remaining cervical stump; Z98.890 Other specified postprocedural states; Z99.89 Dependence on other enabling machines and devices; Z79.899 Other long term (current) drug therapy; Z86.69 Personal history of other diseases of the nervous system and sense organs
CPT/HCPCS: 99212

== ENCOUNTER → 2024-04-18 | Outpatient (CLI) | payer BC ==
[2024-04-18 16:30] VITALS: BP 168/82; PULSE 68; RESP 16; TEMP 98.5
--- NOTE | 2024-04-18 16:39 | P.PROGSL ---
Subjective DATE: 04/18/2024 FOLLOW UP VISIT. Patient with obstructive sleep apnea hypopnea syndrome return to sleep center for follow-up visit. Information from previous visit have been reviewed. Patient is using PAP equipment every night for the whole night, getting PAP supplies in time. The patient does not have significant problems with the mask, PAP unit and humidification. [place] sleepiness scale is slightly increased to 11. I checked information from PAP unit. PAP unit pressure 5-15, average 13.4 cm H2O. Usage is 100% for more then 4 hours, average 9.0 hours per night. Leak is 5 l/m, which is in acceptable range. Apnea Hypopnea Index is 1.7, which is normal. MEDICATIONS have been reviewed, please see below. During physical exam: GENERAL: A pleasant patient without any distress. VITAL SIGNS: Please see below, weight is 281.6 lbs. HEENT: PERRLA, EOMI.low position of soft palate, Mallapati 4 . NECK: Supple. No JVD. LUNGS: Clear to percussion and to auscultation. Good air exchange. No wheezing or rhonchi. HEART: S1, S2 regular. ABDOMEN: Soft and nontender. Obese EXTREMITIES: No clubbing or cyanosis. GROUND HOST/HOSTESS: Awake, alert, and oriented x3. No focal deficit. Impressions: 1. Obstructive sleep apnea-hypopnea syndrome. Patient demonstrated great compliance with treatment, benefiting from treatment. 2. Hypertension. 3. History of headaches in the past, no headaches on treatment with CPAP. 4. Obesity, BMI 39.1. 5. Acid reflux. 6. History of PVCs. 7. Status post hysterectomy. Plan: 1. Continue using PAP equipment every night for the whole night. 2. Sleep hygiene with regular time in bed for at least 7.5-8 hours 3. PAP unit should stay lower then position of the head. 4. Advised patient to remove all remaining water from humidifier canister daily and make it dry after each usage. Refill canister with fresh distilled water before each usage. 5. Watching and losing weight. 6. Precautions related to driving. No driving if feel any sleepiness. 7. I will maintain prescription for PAP supplies including mask, tube, filters. 8. Follow up visit in 6 months or earlier if patient has any problems. Thank you very much for allowing me to participate in the management of your patient. Carlos Arellano MD, PhD, FAASM. Diplomat of [place] [employer], Sleep Medicine Board by [place] [employer] Nursing Home Admissions Director of [facility] [place] Objective - Vital Signs Vital Signs: Vital Signs Temp 98.5 F 04/18/24 16:28 Pulse 68 04/18/24 16:28 Resp 16 04/18/24 16:28 BP 168/82 04/18/24 16:28 Pulse Ox 98 04/18/24 16:28 FiO2 Intake & Output 04/17/24 04/18/24 04/18/24 18:59 06:59 18:59 Weight 127.63 kg Home Medications: Home Medications Medication Instructions Recorded Confirmed Type Loratadine [Claritin] 10 mg PO QAM 11/20/17 01/04/18 History atenoloL 25 mg PO QAM 11/20/17 01/04/18 History L.acidoph,Paracasei, B.lactis 1 cap PO DAILY 12/30/17 01/04/18 History [Probiotic] Loratadine [Claritin] 10 mg PO DAILY 04/18/24 04/18/24 History Metoprolol Succinate [Toprol XL] 50 mg PO DAILY 04/18/24 04/18/24 History
== END ==
LOC: 3 N SLEEP 16:12
PROVIDERS: ATTEND Internal Medicine
CPT/HCPCS: 99212

== ENCOUNTER → 2024-05-12 | Outpatient (CLI) | payer BC ==
[2024-05-12 13:29] LABS: Basophils # (A) 0.06 X 10*3/uL (0.00-0.10); Basophils % (A) 1.1 %; Eosinophils # (A) 0.13 X 10*3/uL (0.04-0.35); Eosinophils % (A) 2.3 %; HCT 43.4 % (37.2-46.3); Lymphocytes # (A) 2.25 X 10*3/uL (0.90-5.00); Lymphocytes % (A) 40.2 %; MCH 29.9 pg (27.0-32.0); MCHC 32.3 g/dL (32.0-37.0); MCV 92.7 FL (80.0-97.0); Mean Platelet Volume 11.1 FL (9.5-12.2); Monocytes # (A) 0.63 X 10*3/uL (0.20-1.00); Monocytes % (A) 11.3 %; NRBC Per 100 WBC 0 X 10*3/uL (0.00-0.01); Neutrophils # (A) 2.52 X 10*3/uL (1.80-7.70); Neutrophils % (A) 44.9 %; Platelet Count 310 X 10*3/uL (140-440); RBC 4.68 X 10*6/uL (4.10-5.20); RDW 13.4 % (11.5-14.5)
[2024-05-12 13:59] LABS: ALT 59 U/L (8-44); AST 41 U/L (13-35); Albumin 4.3 g/dL (3.8-4.9); Albumin/Globulin Ratio 1.43 Ratio (1.60-3.17); Alkaline Phosphatase 84 U/L (41-126); BUN/Creat Ratio 16.33 Ratio (12.00-20.00); Blood Urea Nitrogen 19.6 mg/dL (9.0-27.0); Calcium 9.8 mg/dL (8.7-10.3); Carbon Dioxide 27.2 mmol/L (21.6-31.8); Chloride 104 mmol/L (96-109); Chol/HDL Ratio 3.44 Ratio; Glucose 102 mg/dL (70-110); LDL Cholesterol,Calculated 138.4 mg/dL (0.0-131.0); Potassium 5.4 mmol/L (3.5-5.5); Sodium 141 mmol/L (135-145); T4, Free (Free Thyroxine) 1.01 ng/dL (0.80-1.80); Total Bilirubin 0.4 mg/dL (0.3-1.2); Total Protein 7.3 g/dL (6.2-8.2)
== END | disposition home or self-care (01) ==
LOC: LABWHC1 07:54
PROVIDERS: ATTEND Nurse Practitioner Family
DX: Z00.00 Encounter for general adult medical examination without abnormal findings (principal); I49.3 Ventricular premature depolarization
CPT/HCPCS: 36415; 80053; 80061; 84439; 84443; 84481; 85025

== ENCOUNTER → 2024-12-19 | Outpatient (CLI) | payer BC ==
[2024-12-19 17:01] VITALS: BP 146/84; PULSE 76; RESP 16; TEMP 98.5
--- NOTE | 2024-12-19 17:07 | P.PROGSL ---
Subjective DATE: 12/19/2024 FOLLOW UP VISIT. Patient with obstructive sleep apnea hypopnea syndrome return to sleep center for follow-up visit. Information from previous visit have been reviewed. Patient is using PAP equipment every night for the whole night, getting PAP supplies in time. The patient does not have significant problems with the mask, PAP unit and humidification. [place] sleepiness scale is 8, which is normal. I checked information from PAP unit. PAP unit pressure 5-15, average 12.9 cm H2O. Usage is 100% for more then 4 hours, average 8.8 hours per night. Leak is 11 l/m, which is in acceptable range. Apnea Hypopnea Index is 1.8, which is normal. MEDICATIONS have been reviewed, please see below. During physical exam: GENERAL: A pleasant patient without any distress. VITAL SIGNS: Please see below, weight is 295 lbs. HEENT: PERRLA, EOMI.low position of soft palate, Mallapati 4 . NECK: Supple. No JVD. LUNGS: Clear to percussion and to auscultation. Good air exchange. No wheezing or rhonchi. HEART: S1, S2 regular. ABDOMEN: Soft and nontender.[] EXTREMITIES: No clubbing or cyanosis. TELEGRAPH REPEATER MECHANIC: Awake, alert, and oriented x3. No focal deficit. Impressions: 1. Obstructive sleep apnea-hypopnea syndrome. Patient demonstrated great compliance with treatment, benefiting from treatment. 2. Obesity, BMI 41.1, patient increased weight and 14 pounds comparing with previous visit. 3. Hypertension. 4. History of headaches before starting to use CPAP, practically no headaches at the present time. 5. Acid reflux. 6. History of PVCs. 7. Status post hysterectomy. Plan: 1. Continue using PAP equipment every night for the whole night. 2. Sleep hygiene with regular time in bed for at least 7.5-8 hours 3. PAP unit should stay lower then position of the head. 4. Advised patient to remove all remaining water from humidifier canister daily and make it dry after each usage. Refill canister with fresh distilled water before each usage. 5. Watching and losing weight. 6. Precautions related to driving. No driving if feel any sleepiness. 7. I will maintain prescription for PAP supplies including mask, tube, filters. 8. Follow up visit in 8 months or earlier if patient has any problems. Thank you very much for allowing me to participate in the management of your patient. Carlos Arellano MD, PhD, FAASM. Diplomat of [place] [employer], Sleep Medicine Board by [place] [employer] [place] [facility] [place] Objective - Vital Signs Vital Signs: Vital Signs Temp 98.5 F 12/19/24 17:00 Pulse 76 12/19/24 17:00 Resp 16 12/19/24 17:00 BP 146/84 12/19/24 17:00 Pulse Ox 96 12/19/24 17:00 FiO2 Intake & Output 12/18/24 12/19/24 12/19/24 18:59 06:59 18:59 Weight 133.81 kg Home Medications: Home Medications Medication Instructions Recorded Confirmed Type Loratadine [Claritin] 10 mg PO QAM 11/20/17 01/04/18 History atenoloL 25 mg PO QAM 11/20/17 01/04/18 History L.acidoph,Paracasei, B.lactis 1 cap PO DAILY 12/30/17 01/04/18 History [Probiotic] Loratadine [Claritin] 10 mg PO DAILY 04/18/24 04/18/24 History Metoprolol Succinate [Toprol XL] 50 mg PO DAILY 04/18/24 04/18/24 History
== END ==
LOC: 3 N SLEEP 16:19
PROVIDERS: ATTEND Internal Medicine
DX: G47.33 Obstructive sleep apnea (adult) (pediatric) (principal); I10 Essential (primary) hypertension; K21.9 Gastro-esophageal reflux disease without esophagitis; E66.9 Obesity, unspecified; Z68.41 Body mass index [BMI] 40.0-44.9, adult; Z86.79 Personal history of other diseases of the circulatory system; Z99.89 Dependence on other enabling machines and devices; Z90.710 Acquired absence of both cervix and uterus
CPT/HCPCS: 99212